=== PATIENT | female | born 1960 | race Caucasian/White ===

== ENCOUNTER 2016-12-31 18:48 | Inpatient (IN) | payer OTHER ==
[~2016-12-31] VITALS: Ht 167.6 cm; Wt 77.7 kg
[~2016-12-31 18:48] MED LIST: ALBU1AER9 INH; LEVO-366 PO; PRED10TA PO
[2016-12-31] MEDS ORDERED: LORAZEPAM 2 MG/ML 1 ML VIAL IV STA (19:06)
[2016-12-31] MEDS ORDERED: ASPIRIN 324 MG CHEW PO STA (19:06)
[2016-12-31] MEDS ORDERED: SODIUM CHLORIDE 0.9% 1000ML 1,000 ML IV STA (19:06)
[2016-12-31] MEDS ORDERED: ONDANSETRON INJ 2 MG/ML 2 ML VIAL IV STA (19:06)
--- NOTE | 2016-12-31 19:09 | EMERGENCY ROOM VISIT NOTE ---
History Report prepared by Red: Austin Flores Under the Supervision of: Dr. Urbano Almazan M.D. First contact with patient: 18:58 Chief Complaint: CHEST PAIN Stated Complaint: CHEST,JAW,UNDERARM PAIN,VOMIT History of Present Illness The patient is a 56 year old female who presents to the Emergency Room with complaints of centralized chest pain that began 2 hours ago. The patient rates her current pain an 8/10 in severity. The patient has felt this way before, but it has never happened for this long before. The patient is experiencing jaw pain , left underarm pain, and shortness of breath. She denies any abdominal pain, urinary symptoms, or recent traveling. She thought this may have been an anxiety attack, so she took 2 Lorazepam pills and Aspirin 84 mg PO. She does not have a history of blood clots. She has a history of COPD and Lupus. Source of History: patient Onset: 2 hours ago Position: chest Symptom Intensity: 8/10 Quality: sharp Timing: constant Associated Symptoms: + SOB, + vomiting, No abdominal pain, No urinary symptoms Note: She is experiencing jaw pain and left underarm pain. Review of Systems See HPI for pertinent positives & negatives. A total of 10 systems reviewed and were otherwise negative. Past Medical & Surgical Medical Problems: (1) Chest pain (2) No Known Active Medical Problems (3) NSTEMI (non-ST elevated myocardial infarction) Family History Patient reports no known family medical history. Social History Smoking Status: Current Every Day Smoker Drug Use: none Marital Status: Housing Status: lives with family Occupation Status: employed Current/Historical Medications Scheduled Fluoxetine (Prozac), 20 MG PO DAILY Hydroxychloroquine Sulfate (Plaquenil), 200 MG PO DAILY Lorazepam (Ativan), 0.5 MG PO HS Allergies Coded Allergies: Penicillins (Unverified Adverse Reaction, Intermediate, UPSET STOMACH, 12/31) Physical Exam Vital Signs Date Time Temp Pulse Resp B/P Pulse Ox O2 Delivery O2 Flow Rate FiO2 12/31/16 21:23 90 24 12/31/16 21:08 88 20 12/31/16 20:53 97 17 12/31/16 20:38 98 18 12/31/16 20:23 91 16 12/31/16 19:55 108/69 12/31/16 19:53 95 15 12/31/16 19:48 101 12/31/16 19:45 94 120/77 96 Room Air 12/31/16 19:43 118/76 12/31/16 19:39 Room Air 12/31/16 19:35 95 120/91 96 Room Air 12/31/16 19:23 95 12/31/16 19:00 134/91 12/31/16 18:55 36.7 111 20 156/90 95 Room Air Physical Exam GENERAL: Patient is anxious appearing and in moderate acute distress. HEENT: No acute trauma, normocephalic atraumatic, mucous membranes moist, no nasal congestion, no scleral icterus. NECK: No stridor, no adenopathy, no meningismus, trachea is midline. LUNGS: No dyspnea. Clear to auscultation and equal bilaterally. No wheeze, no rhonchi. HEART: Tachycardic rate and regular rhythm. No murmurs, rubs, gallops appreciated. ABDOMEN: Soft, nontender, bowel sounds positive, no masses appreciated, no peritonitis. BACK: No midline tenderness, no CVA tenderness EXTREMITIES: Normal motion all extremities, no cyanosis, no edema. NEUROLOGIC: Alert and oriented, no acute motor or sensory deficits, no focal weakness, cranial nerves grossly intact. SKIN: No rash, no jaundice, no diaphoresis. Medical Decision & Procedures ER Provider Diagnostic Interpretation: Radiology results are stated below per my review and radiologist interpretation: CHEST ONE VIEW PORTABLE HISTORY: Atypical Chest Pain COMPARISON: Chest 11/05/2014. FINDINGS: The lungs are clear. Cardiac silhouette is normal in size. No pleural effusions. No pneumothorax. IMPRESSION: No acute process. Electronically signed by: Jhonathan Gonzalez M.D. 12/31/2016 7:57 PM Dictated Date/Time: 12/31/2016 7:55 PM CHEST CTA for PULMONARY ARTERIES CT DOSE: 310.41 mGy.cm HISTORY: Atypical chest pain. TECHNIQUE: Multiaxial CT images of the chest were performed following the intravenous administration of contrast to evaluate the pulmonary arteries. Maximal intensity projection images were also obtained. COMPARISON STUDY: None. FINDINGS: There is a normal caliber thoracic aorta with no evidence for dissection. There is no evidence for pulmonary embolus. No pleural effusions. No pneumothorax. The liver and spleen are unremarkable. No mediastinal or hilar lymphadenopathy. The central airways are patent. Mild noncalcified plaque within the aortic arch and proximal left subclavian artery. Bilateral lower lobe posterior groundglass opacities favor mild dependent change. There is mild to moderate emphysema. A 5 mm subpleural nodule within the right middle lobe on image 141 and a 4 mm subpleural nodule within the right middle lobe on image 134. IMPRESSION: 1. No evidence for pulmonary embolus. 2. There are 2 adjacent subcentimeter indeterminate pulmonary nodules within the right middle lobe with the largest measuring 5 mm. Please refer to the chart below for recommended follow-up. 3. Emphysema. Please refer to below summary of Fleischner criteria recommendations for follow-up of incidental CT nodules (Willard Betancourt, Guidelines for management of small pulmonary nodules detected on CT scans: A statement from the Fleischner Society, Radiology 237: [phone].) Electronically signed by: Jhonathan Gonzalez M.D. 12/31/2016 8:36 PM Dictated Date/Time: 12/31/2016 8:22 PM Laboratory Results 12/31/16 19:15 Red Blood Count 4.14, Mean Corpuscular Volume 93.0, Mean Corpuscular Hemoglobin 33.1, Mean Corpuscular Hemoglobin Concent 35.6, Mean Platelet Volume 8.4, Neutrophils (%) (Auto) 78.4, Lymphocytes (%) (Auto) 15.1, Monocytes (%) (Auto) 4.8, Eosinophils (%) (Auto) 1.1, Basophils (%) (Auto) 0.3, Neutrophils # (Auto) 8.17, Lymphocytes # (Auto) 1.57, Monocytes # (Auto) 0.50, Eosinophils # (Auto) 0.11, Basophils # (Auto) 0.03 12/31/16 19:15 Test 12/31/16 19:15 White Blood Count 10.41 K/uL (4.8-10.8) Red Blood Count 4.14 M/uL (4.2-5.4) Hemoglobin 13.7 g/dL (12.0-16.0) Hematocrit 38.5 % (37-47) Mean Corpuscular Volume 93.0 fL (80-100) Mean Corpuscular Hemoglobin 33.1 pg (25-34) Mean Corpuscular Hemoglobin Concent 35.6 g/dl (32-36) Platelet Count 181 K/uL (130-400) Mean Platelet Volume 8.4 fL (7.4-10.4) Neutrophils (%) (Auto) 78.4 % Lymphocytes (%) (Auto) 15.1 % Monocytes (%) (Auto) 4.8 % Eosinophils (%) (Auto) 1.1 % Basophils (%) (Auto) 0.3 % Neutrophils # (Auto) 8.17 K/uL (1.4-6.5) Lymphocytes # (Auto) 1.57 K/uL (1.2-3.4) Monocytes # (Auto) 0.50 K/uL (0.11-0.59) Eosinophils # (Auto) 0.11 K/uL (0-0.5) Basophils # (Auto) 0.03 K/uL (0-0.2) RDW Standard Deviation 43.9 fL (36.4-46.3) RDW Coefficient of Variation 12.9 % (11.5-14.5) Immature Granulocyte % (Auto) 0.3 % Immature Granulocyte # (Auto) 0.03 K/uL (0.00-0.02) D-Dimer 660 ug/L FEU (0-500) Anion Gap 10.0 mmol/L (3-11) Est Creatinine Clear Calc Drug Dose 86.3 ml/min Estimated GFR () 100.9 Estimated GFR (Non- 87.1 BUN/Creatinine Ratio 23.7 (10-20) Calcium Level 8.7 mg/dl (8.5-10.1) Total Creatine Kinase 74 U/L (26-192) Creatine Kinase MB 4.5 ng/ml (0.5-3.6) Creatine Kinase MB Ratio 6.1 (0-3.0) Troponin I 0.285 ng/ml (0-0.045) Laboratory results as reviewed by me. Medications Administered Medications (Trade) Dose Ordered Sig/Forrest Route Start Time Stop Time Status Last Admin Dose Admin Lorazepam (Ativan Inj) 1 mg NOW STAT IV 12/31/16 19:06 12/31/16 19:08 DC 12/31/16 19:32 1 MG Aspirin (Aspirin Chew) 324 mg NOW STAT PO 12/31/16 19:06 12/31/16 19:08 DC 12/31/16 19:30 324 MG Ondansetron HCl 4 mg 4 mg NOW STAT IV 12/31/16 19:06 12/31/16 19:08 DC 12/31/16 19:30 4 MG Sodium Chloride (Nss 1000ml) 1,000 ml @ 999 mls/hr Q1H1M STAT IV 12/31/16 19:06 12/31/16 20:06 DC 12/31/16 19:06 999 MLS/HR Nitroglycerin (Nitrostat Tab) 0.4 mg Q5M PRN SL 12/31/16 19:15 12/31/16 22:35 DC 12/31/16 19:44 0.4 MG Heparin Sodium/ Dextrose 1 ea NOW STAT N/A 12/31/16 20:36 12/31/16 20:37 DC 12/31/16 20:36 1 EA Heparin Sodium/ Dextrose (Heparin 25,000 Unit/500ml D5W) 25,000 unit STK-MED ONCE .ROUTE 12/31/16 20:50 12/31/16 20:51 DC 12/31/16 20:49 25,000 UNIT Heparin Sodium (Porcine) (Heparin Sq 5000 Unit/0.5ml) 5,000 unit STK-MED ONCE .ROUTE 12/31/16 20:50 12/31/16 20:51 DC 12/31/16 20:48 5,000 UNIT Metoprolol Tartrate (Lopressor Tab) 25 mg NOW STAT PO 12/31/16 21:26 12/31/16 21:27 DC 12/31/16 21:40 25 MG ECG Indication: chest pain Rate (beats per minute): 100 Rhythm: normal sinus Findings: RBBB, no acute ischemic change, no ectopy ED Course 1857: The patient was evaluated in room A3. A complete history and physical exam was performed. 1905: Ordered Sodium Chloride 1000 ml @ 999 mls/hr IV, Zofran Inj 4 mg IV, Aspirin 324 mg PO, Ativan Inj 1 mg 1914: Ordered Nitroglycerin 0.4 mg SL 2035: The patient feels better and is having no further chest pain. 2049: Heparin Sodium 5,000 unit .ROUTE, Heparin Sodium/ Dextrose 25,000 unit .ROUTE 2123: I spoke with Dr. Camacho of Cardiology at this time. They recommended ordering Metoprolol and agreed with my decision of the Heparin. 2125: Metoprolol 25 mg PO 2127: Upon reevaluation, the patient is resting. Discussed results and treatment plan with the patient. She verbalized understanding and agreement with the treatment plan. The patient will be evaluated by Dr. Ron Huber Hospitalist, for further management. Medical Decision Differential: Cardiac Ischemia (STEMI, NSTEMI, Unstable Angina, etc), Aortic Dissection, Arrhythmia, Pulmonary Embolism, Pneumonia, Pneumothorax, MSK, Infectious, Pericarditis/Myocarditis, Esophageal Rupture, Gastrointestinal, amongst other pathologies entertained. 56 yr old female smoker with sister who has known CAD arrives with substernal chest pain radiating to right jaw. Resolved with 2nd SLNTG. Mild dimer elevation thus sent for CT with no acute PE noted (multiple nodules noted). No dissection/rupture appreciated. Trop returns elevated consistent with NSTEMI. EKG looks OK without stemi currently. She was evaluated multiple times and doing well. I discussed pros/cons of Heparin. She does not have any current nor recent contraindications to heparin use. Denies headache, head injuries, recent trauma, rectal bleeding, black/bloody stools, abdominal pain, easy bruising/bleeding, etc. Patient agrees to starting heparin. Discussed case with hospitalist who will bring her in for further revaluation. I did discuss case with [place] Judge who asked that I start her on Metoprolol 25mg PO BID. Consults Time Called: [phone] Consulting Physician: Dr. Camacho - Cardiology Returned Call: [phone] We discussed the patient's case. They recommended Metoprolol and agreed with Heparin. Additional Consults: Time Called: 2123 Consulted Physician: Dr. Ron Huber Hospitalist Returned Call: [phone] Additional Comments: They will be evaluating the patient for further management. Impression Primary Impression: NSTEMI (non-ST elevated myocardial infarction) Critical Care I have personally spent greater than 35 minutes of critical care time in the direct management of this patient. This was a life/limb threatening event. This includes time spent evaluating patient, direct bedside care, chart review, placing orders, interpretation of diagnostic studies, discussion with consultants, patient, and family members, as well as other required patient management activities. This 35 minutes is in excess of all separately billable procedures. Scribe Attestation The scribe's documentation has been prepared under my direction and personally reviewed by me in its entirety. I confirm that the note above accurately reflects all work, treatment, procedures, and medical decision making performed by me. Departure Information Dispostion Being Evaluated By Hospitalist Referrals Yusuf Kumari M.D. (PCP) Patient Instructions My [facility]
[2016-12-31] MEDS ORDERED: HYDR200T5 PO (19:30)
[2016-12-31] MEDS ORDERED: FLUO20CA35 PO (19:30)
[2016-12-31] MEDS ORDERED: LORA-741 PO (19:30)
[2016-12-31 19:32] LABS: BASO % 0.3 %; BASO ABS # 0.03 K/uL (0-0.2); COMPLETE YES; EOS % 1.1 %; HEMATOCRIT 38.5 % (37-47); IG% 0.3 %; LYMPH % 15.1 %; LYMPH ABS # 1.57 K/uL (1.2-3.4); MEAN CORPUSCULAR HEMOGLOBIN 33.1 pg (25-34); MEAN CORPUSCULAR HGB CONC 35.6 g/dl (32-36); MEAN PLATELET VOLUME 8.4 fL (7.4-10.4); MONO % 4.8 %; NEUT % 78.4 %; PLATELET COUNT 181 K/uL (130-400); RED BLOOD COUNT 4.14 M/uL (4.2-5.4); WHITE BLOOD COUNT 10.41 K/uL (4.8-10.8)
[2016-12-31] MEDS: NITROGLYCERIN 0.4 MG SL PER TAB CHARGE SL PRN ×2 (19:36→19:44)
[2016-12-31 19:48] LABS: BUN/CREATININE RATIO 23.7 (10-20); CALCIUM 8.7 mg/dl (8.5-10.1); CREATININE 0.76 mg/dl (0.60-1.20); POTASSIUM 3.4 mmol/L (3.5-5.1)
--- NOTE | 2016-12-31 19:58 | DIAGNOSTIC IMAGING REPORT ---
CHEST ONE VIEW PORTABLE HISTORY: Atypical Chest Pain COMPARISON: Chest 11/05/2014. FINDINGS: The lungs are clear. Cardiac silhouette is normal in size. No pleural effusions. No pneumothorax. IMPRESSION: No acute process. Electronically signed by: Jhonathan Gonzalez M.D. 12/31/2016 7:57 PM Dictated Date/Time: 12/31/2016 7:55 PM
[2016-12-31] MEDS ORDERED: OPTIRAY 320 IV PRN (20:00)
[2016-12-31 20:25] LABS: CKMB/CK RATIO 6.1 (0-3.0)
--- NOTE | 2016-12-31 20:38 | DIAGNOSTIC IMAGING REPORT ---
CHEST CTA for PULMONARY ARTERIES CT DOSE: 310.41 mGy.cm HISTORY: Atypical chest pain. TECHNIQUE: Multiaxial CT images of the chest were performed following the intravenous administration of contrast to evaluate the pulmonary arteries. Maximal intensity projection images were also obtained. COMPARISON STUDY: None. FINDINGS: There is a normal caliber thoracic aorta with no evidence for dissection. There is no evidence for pulmonary embolus. No pleural effusions. No pneumothorax. The liver and spleen are unremarkable. No mediastinal or hilar lymphadenopathy. The central airways are patent. Mild noncalcified plaque within the aortic arch and proximal left subclavian artery. Bilateral lower lobe posterior groundglass opacities favor mild dependent change. There is mild to moderate emphysema. A 5 mm subpleural nodule within the right middle lobe on image 141 and a 4 mm subpleural nodule within the right middle lobe on image 134. IMPRESSION: 1. No evidence for pulmonary embolus. 2. There are 2 adjacent subcentimeter indeterminate pulmonary nodules within the right middle lobe with the largest measuring 5 mm. Please refer to the chart below for recommended follow-up. 3. Emphysema. Please refer to below summary of Fleischner criteria recommendations for follow-up of incidental CT nodules (Willard Betancourt, Guidelines for management of small pulmonary nodules detected on CT scans: A statement from the Fleischner Society, Radiology 237: [phone].) SOLID NODULES Solitary nodule size: <6 mm * low risk patients: no follow-up needed * high risk patients: optional CT at 12 months Solitary nodule size: 6-8 mm * low risk patients: follow-up at 6-12 months, then consider further follow-up at 18-24 months * high risk patients: initial follow-up CT at 6-12 months and then at 18-24 months if no change Solitary nodule size: >8 mm * either low or high risk patients - consider follow-up CT at 3 months, and/or CT-PET, and/or biopsy Multiple nodules size: <6 mm * low risk patients: no routine follow-up * high risk patients: optional CT at 12 months Multiple nodules size: 6-8 mm * low risk patients: follow-up at 3-6 months, then consider further follow-up at 18-24 months * high risk patients: follow-up at 3-6 months, then at 18-24 months if no change Multiple nodules size: >8 mm * low risk patients: follow-up at 3-6 months, then consider further follow-up at 18-24 months * high risk patients: follow-up at 3-6 months, then at 18-24 months if no change Note: newly detected indeterminate nodule in persons 35 years of age or older. * low risk patients: minimal or absent history of smoking and/or other known risk factors * high risk patients: history of smoking or of other known risk factors (e.g. first degree relative with lung cancer, or exposure to asbestos, radon, uranium) * if a nodule up to 8 mm is partly solid or is ground glass further follow-up is required after 24 months to exclude possible slow growing adenocarcinoma ([place]) SUBSOLID NODULES Solitary pure ground-glass nodule * nodule size <6 mm - no CT follow-up required * nodule size >=6 mm - follow-up CT at 6-12 months, then every 2 years until 5 years Solitary part-solid nodule * nodule size <6 mm - no CT follow-up required * nodule size >=6 mm - follow-up CT at 3-6 months. If unchanged, and solid component remains <6 mm, then annual follow-up for 5 years Multiple subsolid nodules * nodule size <6 mm - follow-up CT at 3-6 months, consider further follow-up at 2 and 4 years if stable * nodule size >=6 mm - follow-up CT at 3-6 months, subsequent management based on the most suspicious nodule(s) Electronically signed by: Jhonathan Gonzalez M.D. 12/31/2016 8:36 PM Dictated Date/Time: 12/31/2016 8:22 PM
[2016-12-31] MEDS ORDERED: HEPARIN 25000 UNIT/500 ML D5W ONE (20:50)
[2016-12-31] MEDS ORDERED: HEPARIN SOD 5000 UNIT/0.5 ML CARP ONE (20:50)
[2016-12-31] MEDS ORDERED: METOPROLOL TARTRATE 25 MG TAB PO STA (21:26)
[2016-12-31] MEDS ORDERED: NITROGLYCERIN 0.4 MG SL PER TAB CHARGE SL PRN (22:00)
[2016-12-31] MEDS ORDERED: POTASSIUM CHLORIDE 10 MEQ TABCR PO STA (22:02)
--- NOTE | 2016-12-31 22:10 | History and Physical ---
History & Physical Date & Time of Service: Dec 31, 2016 at 22:03 Chief Complaint: Chest,Jaw,Underarm Pain,Vomit Primary Care Physician: Yusuf Kumari M.D. History of Present Illness Source: patient The patient is a 56 year old female with past medical hx of chronic tobacco abuse , SLE presented to ED with complain of severe substernal chest discomfort with pain radiation to jaw , left underarm associated with SOB , diaphoresis and nausea pt does not having any hx of Coronary artery disease , family hx significant for Father having DE , pt could not tell how old he was when he had the DE later developed post DE complication -CHF pt mentions that her symptom started approx around 5 pm after she finished giving bath to her Dog felt severe substernal crushing chest pain with pain radiating to her jaw , neck , right ear , had numbness on left underarm felt diaphoretic , nauseous, associated with SOB . She thought this may have been an anxiety attack, so she took 2 Lorazepam pills and Aspirin 84 mg PO. Her symptom resolved after SL nitro during my interview -pt was completely symptom free, no chest discomfort, no SOB ,no nausea concerned about her symptom cardiac markers at 19: 15 CK 74/CKMB 4.5/lila 0.285 EKG was normal sinus no acute ST-T wave changes Family History Patient reports no known family medical history. Social History Smoking Status: Current Every Day Smoker Drug Use: none Marital Status: Housing status: lives with family Occupational Status: employed Multi-Drug Resistant Organisms History of MDRO: No Allergies Coded Allergies: Penicillins (Unverified Adverse Reaction, Intermediate, UPSET STOMACH, 12/31) Home Medications Scheduled Fluoxetine (Prozac), 20 MG PO DAILY Hydroxychloroquine Sulfate (Plaquenil), 200 MG PO DAILY Lorazepam (Ativan), 0.5 MG PO HS Review of Systems Constitutional: + fatigue, + weakness Respiratory: + dyspnea on exertion, + shortness of breath Cardiovascular: + chest pain, + problem reported (substernal heaviness , with pain radiation to jaw and arm ) Abdomen: + nausea Musculoskeletal: No calf pain, No joint pain, No muscle pain, No problem reported, No swelling Genitourinary - Female: No dysmenorrhea, No dysuria, No hematuria, No menorrhagia, No metrorrhagia, No , No problem reported, No rash, No urinary frequency, No urinary incontinence, No urinary retention, No urinary urgency, No vaginal bleeding, No vaginal discharge, No vaginal itching, No vulvodynia Neurologic: + weakness Psychiatric: + anxiety Physical Exam Vital Signs Date Time Temp Pulse Resp B/P Pulse Ox O2 Delivery O2 Flow Rate FiO2 12/31/16 19:48 101 12/31/16 19:45 94 120/77 96 Room Air 12/31/16 19:43 118/76 12/31/16 19:39 Room Air 12/31/16 19:35 95 120/91 96 Room Air 12/31/16 19:23 95 12/31/16 19:00 134/91 12/31/16 18:55 36.7 111 20 156/90 95 Room Air General Appearance: no apparent distress Head: normocephalic, atraumatic Eyes: normal inspection, sclerae normal Neck: no adenopathy, no carotid bruits, trachea midline Respiratory/Chest: chest non-tender, lungs clear, normal breath sounds, no respiratory distress Cardiovascular: regular rate, rhythm, no murmur Abdomen/GI: normal bowel sounds, non tender, soft Extremities/Musculoskelatal: normal capillary refill, no pedal edema Neurologic/Psych: alert, normal mood/affect, oriented x 3 Skin: normal color, warm/dry, no rash Diagnostics Laboratory Results Results Past 24 Hours Test 12/31/16 19:15 Range/Units White Blood Count 10.41 4.8-10.8 K/uL Red Blood Count 4.14 4.2-5.4 M/uL Hemoglobin 13.7 12.0-16.0 g/dL Hematocrit 38.5 37-47 % Mean Corpuscular Volume 93.0 80-100 fL Mean Corpuscular Hemoglobin 33.1 25-34 pg Mean Corpuscular Hemoglobin Concent 35.6 32-36 g/dl Platelet Count 181 130-400 K/uL Mean Platelet Volume 8.4 7.4-10.4 fL Neutrophils (%) (Auto) 78.4 % Lymphocytes (%) (Auto) 15.1 % Monocytes (%) (Auto) 4.8 % Eosinophils (%) (Auto) 1.1 % Basophils (%) (Auto) 0.3 % Neutrophils # (Auto) 8.17 1.4-6.5 K/uL Lymphocytes # (Auto) 1.57 1.2-3.4 K/uL Monocytes # (Auto) 0.50 0.11-0.59 K/uL Eosinophils # (Auto) 0.11 0-0.5 K/uL Basophils # (Auto) 0.03 0-0.2 K/uL RDW Standard Deviation 43.9 36.4-46.3 fL RDW Coefficient of Variation 12.9 11.5-14.5 % Immature Granulocyte % (Auto) 0.3 % Immature Granulocyte # (Auto) 0.03 0.00-0.02 K/uL D-Dimer 660 0-500 ug/L FEU Sodium Level 135 136-145 mmol/L Potassium Level 3.4 3.5-5.1 mmol/L Chloride Level 100 98-107 mmol/L Carbon Dioxide Level 25 21-32 mmol/L Anion Gap 10.0 3-11 mmol/L Blood Urea Nitrogen 18 7-18 mg/dl Creatinine 0.76 0.60-1.20 mg/dl Est Creatinine Clear Calc Drug Dose 86.3 ml/min Estimated GFR () 100.9 Estimated GFR (Non- 87.1 BUN/Creatinine Ratio 23.7 10-20 Random Glucose 89 70-99 mg/dl Calcium Level 8.7 8.5-10.1 mg/dl Total Creatine Kinase 74 26-192 U/L Creatine Kinase MB 4.5 0.5-3.6 ng/ml Creatine Kinase MB Ratio 6.1 0-3.0 Troponin I 0.285 0-0.045 ng/ml Diagnostic Radiology CHEST CTA for PULMONARY ARTERIES CT DOSE: 310.41 mGy.cm HISTORY: Atypical chest pain. TECHNIQUE: Multiaxial CT images of the chest were performed following the intravenous administration of contrast to evaluate the pulmonary arteries. Maximal intensity projection images were also obtained. COMPARISON STUDY: None. FINDINGS: There is a normal caliber thoracic aorta with no evidence for dissection. There is no evidence for pulmonary embolus. No pleural effusions. No pneumothorax. The liver and spleen are unremarkable. No mediastinal or hilar lymphadenopathy. The central airways are patent. Mild noncalcified plaque within the aortic arch and proximal left subclavian artery. Bilateral lower lobe posterior groundglass opacities favor mild dependent change. There is mild to moderate emphysema. A 5 mm subpleural nodule within the right middle lobe on image 141 and a 4 mm subpleural nodule within the right middle lobe on image 134. IMPRESSION: 1. No evidence for pulmonary embolus. 2. There are 2 adjacent subcentimeter indeterminate pulmonary nodules within the right middle lobe with the largest measuring 5 mm. Please refer to the chart below for recommended follow-up. 3. Emphysema. Please refer to below summary of Fleischner criteria recommendations for follow-up of incidental CT nodules (Willard Betancourt, Guidelines for management of small pulmonary nodules detected on CT scans: A statement from the Fleischner Society, Radiology 237: [phone].) SOLID NODULES Solitary nodule size: <6 mm * low risk patients: no follow-up needed * high risk patients: optional CT at 12 months CHEST ONE VIEW PORTABLE HISTORY: Atypical Chest Pain COMPARISON: Chest 11/05/2014. FINDINGS: The lungs are clear. Cardiac silhouette is normal in size. No pleural effusions. No pneumothorax. IMPRESSION: No acute process. CXR normal Impression Assessment and Plan CHEST PAIN /UNSTABLE ANGINA EQUIVALENT presented with typical anginal symptom resolved with SL nitro no prior hx of CAD CT chest with contrast -negatived for PE NSTEMI presented with crushing substernal chest pain with radiation of Jaw , left arm symptom resolved with SL nitro troponin elevated serial markers ordered monitor in tele IV heparin wt based protocol ECHO ordered to assess wall motion abnormality ,LV function Cardiology consult requested NPO past midnight except for meds -if pt requires cardiac intervention HX OF COPD respiratory status stable no evidence of exacerbation TOBACCO ABUSE DISORDER : Smoked 1 pack/day for 37 years; Smoked: Never used smokeless tobacco. started smoking at age 14-down to 1 ppd from 2ppd since 02/2010 nicotine patch ordered as Per recent office visit note with Dr Kumari : pt has tried to quit, had nightmares on Chantix. smoking cessation counselling provided DEPRESSION Cont with Prozac HYPONATREMIA : due to dehydration gentle hydration with IV NSS follow PRP HYPOKALEMIA: replaced orally follow labs in AM PULMONARY NODULE : incidental finding in CT chest hx of 38 pk/yr smoking hx -high risk repeat CT chest in 12 months HX OF LUPUS : follows with Rheumatology Dr Cathy Fitzpatrick Plaquenil in setting of acute coronary event can be resumed when clinically improved HX OF CHRONIC BACK PAIN /ARTHRITIS : pt was recently started on PO Prednisone taper for left sided sciatica , low back pain by her PCP Pt complains of gait disturbance due to chronic pain frequent falls at home PT/OT catrachitaal requested FULL CODE DVT PROPHYLAXIS : IV heparin wt based protocol DISPOSITION : expected to return home when medically stable Medicine follow up with Dr Kumari Level of Care Telemetry Resuscitation Status FULL RESUSCITATION VTE Prophylaxis VTE Risk Assessment Done? Y/N: Yes Risk Level: Moderate Note In my clinical judgment this beneficiary meets acute admission criteria, established by [facility], that includes being hospitalized through two midnights. Additional Copies To Yusuf Kumari M.D.
[2016-12-31] MEDS ORDERED: ALBUTEROL HFA 8 GM INHALER INH PRN (22:30)
[2016-12-31] MEDS ORDERED: ALBUT/IPRATROP 3MG/0.5MG NEB 3 ML VIAL INH PRN (22:30)
[2016-12-31 22:45] VITALS: BP 121/87; PULSE 87; TEMP 36.6; O2SAT 96; Ht 167.6 cm; Wt 77.7 kg
[2016-12-31] MEDS ORDERED: NSS + 20MEQ KCL 1000ML 1,000 ML IV SCH (22:45)
[2016-12-31] MEDS ORDERED: HEPARIN 25,000 UNIT/500ML D5W 500 ML IV PRN (23:00)
[2016-12-31] MEDS: NICOTINE 21 MG/24 HR TDSY TD SCH (23:30)
[2017-01-01] VITALS (18 sets, daily range): BP systolic 99–127; BP diastolic 62–85; PULSE 68–96; TEMP 36.4–36.9; O2SAT 93–99
[2017-01-01 04:08] LABS: MEAN CELL VOLUME 94.5 fL (80-100); MEAN CORPUSCULAR HEMOGLOBIN 32.8 pg (25-34); MEAN CORPUSCULAR HGB CONC 34.7 g/dl (32-36); MEAN PLATELET VOLUME 8.5 fL (7.4-10.4); PLATELET COUNT 173 K/uL (130-400); RED BLOOD COUNT 4.02 M/uL (4.2-5.4); WHITE BLOOD COUNT 9.61 K/uL (4.8-10.8)
[2017-01-01 04:21] LABS: PARTIAL THROMBOPLASTIN RATIO 1.1
[2017-01-01 04:34] LABS: BUN/CREATININE RATIO 17.3 (10-20); CALCIUM 8.6 mg/dl (8.5-10.1); CREATININE 0.69 mg/dl (0.60-1.20); MAGNESIUM 2.3 mg/dl (1.8-2.4); POTASSIUM 4.9 mmol/L (3.5-5.1)
[2017-01-01 04:49] LABS: CHOLESTEROL/HDL RATIO 4.5; CKMB/CK RATIO 13.1 (0-3.0)
--- NOTE | 2017-01-01 05:26 | Progress Note ---
Progress Note Date of Service Jan 01, 2017. Progress Note ATTENDING NOTE : NSTEMI repeat troponin elevation noted Rishi 0.285->9.7 CK 611 CKMB 80 pt denies of any recurrent of chest pain or SOB IV heparin wt based protocol Cardiology consulted pt is kept NPO except for meds for possible Cardiac intervention /cardiac cath
[2017-01-01] MEDS ORDERED: NITROGLYCERIN OINT 2% 1GM PACKET EXT STA (05:31)
[2017-01-01] MEDS ORDERED: NITROGLYCERIN OINT 2% 1GM PACKET ONE (05:40)
[2017-01-01] MEDS: ONDANSETRON INJ 2 MG/ML 2 ML VIAL IV PRN (05:42)
--- NOTE | 2017-01-01 05:42 | Progress Note ---
Progress Note Date of Service Jan 01, 2017. Progress Note ATTENDING NOTE : pt developed substernal crushing chest pain with radiation to rt jaw and left arm nauseous , diaphoretic complains of SOB stat EKG obtained 5: 35 am NSR with flattening of T wave in V2 ordered for Nitro paste on IV heparin on cardiology paged case D/w Dr Camacho -ordered to give IV Lopressor 5 mg X1 stat cont IV heparin gtt nitro paste pt will have cardiac cath today am aspirin 81 mg AM dose now /loading dose of Plavix 300 mg X1 given chest pain improved after Nitro past IV morphine repeat EKG at 6: 30 am
[2017-01-01] MEDS ORDERED: LORAZEPAM 2 MG/ML 1 ML VIAL IV PRN (05:45)
[2017-01-01] MEDS ORDERED: MoRPHine SULFATE 2 MG/ML CARP IV PRN (05:45)
[2017-01-01] MEDS ORDERED: METOPROLOL TARTRATE 1 MG/ML VIAL IV STA (05:48)
[2017-01-01] MEDS ORDERED: HEPARIN SOD 5000 UNIT/0.5 ML CARP SQ SCH (06:00)
[2017-01-01] MEDS: ASPIRIN 81 MG ECTAB PO SCH (06:03)
[2017-01-01] MEDS ORDERED: CLOPIDOGREL BISULFATE 300 MG TAB PO SCH (06:15)
[2017-01-01 06:22] LABS: URINE APPEARANCE CLEAR (CLEAR); URINE BILIRUBIN NEG (NEG); URINE COLOR YELLOW; URINE NITRITE NEG (NEG); URINE PH 5.5 (4.5-7.5); URINE SPECIFIC GRAVITY 1.016 (1.000-1.030); UROBILINOGEN NEG (NEG); ZZUR CULT IF INDIC CLEAN CATCH NO
[2017-01-01 06:28] LABS: MANUAL MICROSCOPIC REQUIRED? NO; REVIEW REQ? NO
[2017-01-01] MEDS: ATORVASTATIN 40 MG TAB PO SCH (06:30)
[2017-01-01 07:10] LABS: HEMATOCRIT 39.6 % (37-47); MEAN CELL VOLUME 94.7 fL (80-100); MEAN CORPUSCULAR HEMOGLOBIN 32.1 pg (25-34); MEAN CORPUSCULAR HGB CONC 33.8 g/dl (32-36); PLATELET COUNT 212 K/uL (130-400); RED BLOOD COUNT 4.18 M/uL (4.2-5.4); WHITE BLOOD COUNT 10.93 K/uL (4.8-10.8)
[2017-01-01] MEDS ORDERED: SODIUM CHLORIDE 0.9% 1000ML 1,000 ML IV ONE (07:30)
[2017-01-01 07:41] LABS: CALCIUM 8.6 mg/dl (8.5-10.1); CREATININE 0.69 mg/dl (0.60-1.20); POTASSIUM 4.5 mmol/L (3.5-5.1)
[2017-01-01] MEDS ORDERED: DIAZEPAM 5MG TAB PO ONE (07:45)
[2017-01-01 07:51] LABS: CKMB/CK RATIO 12.9 (0-3.0)
--- NOTE | 2017-01-01 07:58 | DIAGNOSTIC IMAGING REPORT ---
SINGLE VIEW CHEST CLINICAL HISTORY: Dyspnea. Myocardial infarction. FINDINGS: An AP, portable, upright chest radiograph is compared to chest x-ray and chest CT dated 12/31/2016. The examination is degraded by portable technique and patient rotation. The cardiomediastinal silhouette is unremarkable. The pulmonary vasculature is noncongested. Emphysema and chronic interstitial thickening are similar to previous. There is bibasilar atelectasis. No airspace consolidation or large pleural effusion is identified. No pneumothorax is seen. The skeletal structures are osteopenic. The bony thorax is grossly intact. IMPRESSION: Emphysema with no acute cardiopulmonary abnormality. Electronically signed by: Moose Brown M.D. 01/01/2017 7:56 AM Dictated Date/Time: 01/01/2017 7:55 AM
[2017-01-01] MEDS ORDERED: ASPIRIN 81 MG CHEW ONE (08:19)
[2017-01-01] MEDS ORDERED: MIDAZOLAM HCL 1 MG/ML 2ML VIAL ONE (08:57)
[2017-01-01] MEDS: FLUOXETINE HCL 20 MG CAP PO SCH (09:00)
[2017-01-01] MEDS ORDERED: SODIUM CHLORIDE 0.9% 1000ML 250 ML IV PRN (09:17)
[2017-01-01] MEDS ORDERED: SODIUM CHLORIDE 0.9% 1000ML 1,000 ML IV SCH (09:17)
--- NOTE | 2017-01-01 09:24 | [facility] Post Operative Brief Note ---
Preliminary Procedure Note Procedure Date Jan 01, 2017. Pre-Procedure Diagnosis Cardiothoracic Symptom AUC Score 9 Post-Procedure Diagnosis Normal Coronary Arteries Procedure(s) Performed Coronary Angiography, Left Heart Cath, LV Angiography Guide Dog Trainer Dr. Sherwin Camacho Insurance [employer] Financial Services Agent(s) Mildred Malik Estimated Blood Loss <15cc Medication(s) Lidocaine 1% (local infiltraion) Preliminary Findings Right dominant coronary anatomy Normal coronaries Normal LV function EF 65% LVEDP 14 Recommendations Medical therapy and/or Counseling Specimens None Fluids (cc crystalloids) 104 Anesthesia Verseed 1mg IV Procedural Complication(s) None Disposition PCU
[2017-01-01] MEDS ORDERED: ATROPINE SULFATE 0.1 MG/ML 5ML SYR IV PRN (09:30)
[2017-01-01] MEDS ORDERED: ACETAMINOPHEN 325 MG TAB PO PRN (09:30)
--- NOTE | 2017-01-01 09:54 | CARDIOLOGY CONSULTATION ---
DATE OF CONSULTATION: 01/01/2017 REFERRING: Lindsay Velasquez MD PRIMARY CARE PHYSICIAN: Yusuf Kumari MD INDICATIONS: Chest pain, non-ST segment elevation myocardial infarction. HISTORY OF PRESENT ILLNESS: The patient is a 56-year-old female whose past medical history is notable for chronic obstructive lung disease, SLE, mild demyelinating disease per patient. She presents now noting yesterday after rigorous activity while bathing her dog, developing severe substernal chest pain, radiating to her jaw, neck and ear with numbness to the left arm, diaphoresis and nausea. She took an aspirin and 2 lorazepam and presented to the Emergency Room with pain relieved with 1 sublingual nitroglycerin. Initial cardiac enzymes are mildly elevated. This morning, the patient had an additional episode of chest discomfort with elevated troponin. She is referred now for further evaluation. She denies any prior history of cardiac disease, rheumatic fever, scarlet fever, renal or hepatic disease. Notes no history of TIA or stroke, prior history of chest pain. Denies renal or hepatic disease. Notes no melena, hematochezia, dysuria or hematuria. Notes no bleeding difficulties. Notes no recent fevers, chills or infections. Notes no rash. Has chronic arthritic complaints, chronic mild breathlessness. Notes cholesterols have been elevated in the past, but uncertain as to what degree. She does continue to smoke approximately 1 pack of cigarettes per day. ALLERGIES: None. MEDICATIONS PRIOR TO HOSPITALIZATION: Prozac 20 mg p.o. daily, Plaquenil 200 mg p.o. daily, and lorazepam p.r.n. PAST SURGICAL HISTORY: Notable for partial hysterectomy. FAMILY HISTORY: Notable for coronary artery disease and heart failure in the father with patient's father developing disease in his 50s. She has a history of peripheral vascular disease in her 50s. SOCIAL HISTORY: The patient resides in [place]. She is a 1-pack per day smoker, uses no significant alcoholic beverages. MEDICATIONS: Uses ibuprofen as [id number] medication on a near daily basis. PHYSICAL EXAMINATION: VITAL SIGNS: Heart rate 75, blood pressure is 107/74. HEENT: Normocephalic, atraumatic. Nares without discharge. Throat was clear. NECK: Supple without thyromegaly or lymphadenopathy. There are no carotid bruits. LUNGS: Reveal diminished breath sounds diffusely. CARDIOVASCULAR: Regular, normal S1, S2. No murmur, gallop or rub. PMI is nondisplaced. ABDOMEN: Soft, nontender, no audible abdominal bruits. EXTREMITIES: Without cyanosis or clubbing. There are intact distal pulses 2/4. Dorsalis pedis and posterior tibialis. Right ulnar pulses not palpable. IMAGING DATA: EKG on presentation revealed sinus rhythm with right bundle branch block, rate 100. EKG this morning after episode of chest discomfort demonstrates sinus rhythm with normal tracing. Chest x-ray reveals no infiltrate or edema. CT scan of the chest to exclude pulmonary embolus was performed last night without evidence of pulmonary emboli with emphysematous changes. LABORATORY STUDIES: Sodium is 145, potassium is 4.9, chloride is 111, bicarbonate 29, BUN is 12, creatinine 0.69. Initial troponin was 0.28 , is increased to 9.7 this morning. CK went from 74-611 with at significant MB fractions. IMPRESSION: A 56-year-old female presents with symptoms strongly suggestive of acute coronary syndrome with repeated episodes of chest discomfort this morning. She is anticoagulated with heparin. She has received a single dose of metoprolol, topical nitrates, and referral for cardiac catheterization this morning. Procedure and risks explained in detail to the patient including risks of , myocardial infarction, stroke, bleeding, infection, dye reaction, renal vascular embolic injury. Additional risks of coronary intervention if indicated were also discussed including increased risk of myocardial infarction and need for urgent bypass surgery. Plan on proceeding first case.
--- NOTE | 2017-01-01 10:11 | ECHOCARDIOGRAM REPORT ---
*NOTICE TO RECEIVING [employer] This information is strictly Confidential and protected under [place] law. [place] law prohibits you from making any further disclosure of this information unless further disclosure is expressly permitted by the written consent of the person to whom it pertains or is authorized by law. A general authorization for the release of medical or other information is not sufficient for this purpose. Hospital accepts no responsibility if the information is made available to any other person, INCLUDING THE PATIENT. Interpretation Summary * Name: FRANCISCA HAMPTON Study Date: 01/01/2017 07:39 AM BP: 109/75 mmHg * Patient Location: C.2T\S\S237\S\1 HR: 80 * : 1960 (M/d/yyyy) Gender: Female Height: 66 in * Age: 56 yrs Ethnicity: CA Weight: 172 lb * Ordering Physician: Lindsay Velasquez * Performed By: Zita Billy RDCS * * Reason For Study: Chest pain * BSA: 1.9 m2 * -- Conclusions -- * Normal LV chamber size and wall thickness. * Normal LV systolic function, EF 55-60%. * No segmental left ventricular wall motion abnormalities are noted. * Grade I diastolic dysfunction. * No significant valvular pathology. Procedure Details * A complete two-dimensional transthoracic echocardiogram was performed (2D, M-mode, Doppler and color flow Doppler). Left Ventricle * The left ventricle is normal in size. * There is normal left ventricular wall thickness. * Left ventricular systolic function is normal. * No segmental left ventricular wall motion abnormalities are noted. * Ejection Fraction = 55-60%. * The left ventricular wall motion is normal. Right Ventricle * The right ventricular cavity size is normal (basal dimension <4.2 cm in right ventricular apical 4-chamber view). * The right ventricular systolic function is normal as assessed by tricuspid annular plane systolic excursion (TAPSE) (normal >1.5 cm). Atria * The left atrial size is normal. * Right atrial size is normal. * No ASD detected; PFO is not assessed. Mitral Valve * The mitral valve is normal in structure and function. Tricuspid Valve * The tricuspid valve is normal in structure and function. Aortic Valve * The aortic valve is not well visualized. * No hemodynamically significant valvular aortic stenosis. * There is no significant aortic regurgitation. Pulmonic Valve * The pulmonary valve is not well seen, but the Doppler examination is normal without significant regurgitation or stenosis. Great Vessels * The aortic root and proximal ascending aorta are normal sized. Pericardium/Pleural * There is no pericardial effusion. Left Ventricular Diastolic Function * Grade I diastolic dysfunction, (abnormal relaxation pattern). MMode 2D Measurements and Calculations IVSd 0.96 cm IVSs 0.75 cm LVIDd 4.0 cm LVIDs 2.9 cm LVPWd 1.1 cm LVPWs 1.8 cm IVS/LVPW 0.90 FS 27.9 % EDV(Teich) 68.5 ml ESV(Teich) 31.1 ml EF(Teich) 54.6 % EDV(cubed) 62.3 ml ESV(cubed) 23.4 ml EF(cubed) 62.5 % % IVS thick -21.64 % % LVPW thick 67.4 % LV mass(C)d 127.2 grams LV mass(C)dI 67.8 grams/m\S\2 LV mass(C)s 111.5 grams LV mass(C)sI 59.4 grams/m\S\2 CO(Teich) 2.7 l/min CI(Teich) 1.5 l/min/m\S\2 SV(Teich) 37.4 ml SI(Teich) 20.0 ml/m\S\2 CO(cubed) 2.8 l/min CI(cubed) 1.5 l/min/m\S\2 SV(cubed) 39.0 ml SI(cubed) 20.8 ml/m\S\2 ACS 1.9 cm asc Aorta Diam 3.0 cm LVAd ap4 22.2 cm\S\2 LVLd ap4 7.1 cm EDV(MOD-sp4) 57.2 ml LVAs ap4 13.7 cm\S\2 LVLs ap4 5.9 cm ESV(MOD-sp4) 26.0 ml EF(MOD-sp4) 54.5 % LVAd ap2 25.8 cm\S\2 LVLd ap2 8.3 cm EDV(MOD-sp2) 65.7 ml LVAs ap2 15.9 cm\S\2 LVLs ap2 6.3 cm ESV(MOD-sp2) 33.3 ml EF(MOD-sp2) 49.3 % CO(MOD-sp4) 2.3 l/min CI(MOD-sp4) 1.2 l/min/m\S\2 SV(MOD-sp4) 31.2 ml SI(MOD-sp4) 16.6 ml/m\S\2 CO(MOD-sp2) 2.4 l/min CI(MOD-sp2) 1.3 l/min/m\S\2 SV(MOD-sp2) 32.4 ml SI(MOD-sp2) 17.3 ml/m\S\2 Doppler Measurements and Calculations MV E max kalie 59.7 cm/sec MV A max kalie 78.6 cm/sec MV E/A 0.76 MV P1/2t max kalie 79.9 cm/sec MV P1/2t 64.8 msec MVA(P1/2t) 3.4 cm\S\2 MV dec slope 361.1 cm/sec\S\2 MV dec time 0.40 sec Ao V2 max 114.8 cm/sec Ao max PG 5.3 mmHg Ao max PG (full) 2.4 mmHg LV V1 max PG 2.9 mmHg LV V1 max 84.9 cm/sec
[2017-01-01] MEDS ORDERED: NURSING VERBAL MED ORDER ONE (11:30)
[2017-01-01] MEDS: NICOTINE 21 MG/24 HR TDSY TD SCH (11:55)
[2017-01-01] MEDS: NITROGLYCERIN OINT 2% 1GM PACKET EXT SCH ×3 (11:56→23:54)
[2017-01-01 14:08] LABS: CKMB/CK RATIO 11.7 (0-3.0)
--- NOTE | 2017-01-01 17:26 | Progress Note ---
Internal Med Progress Note Date of Service: Jan 01, 2017. Provider Documentation: SUBJECTIVE: Patient is lying in her bed in no apparent distress.Still has intermittent chest pain/pressure. No SOB or diaporesis. Vitals have been stable. OBJECTIVE: Vital Signs-as noted below Examination: General Appearance: Alert/Awake in no apparent distress Head: normocephalic, atraumatic Eyes: normal inspection, sclerae normal Neck: no adenopathy, no carotid bruits, trachea midline Respiratory/Chest: chest non-tender, lungs clear, normal breath sounds, no respiratory distress Cardiovascular: regular rate, rhythm, no murmur Abdomen/GI: normal bowel sounds, non tender, soft Extremities/Musculoskeletal: normal capillary refill, no pedal edema Neurologic/Psych: alert, normal mood/affect, oriented x 3 Skin: normal color, warm/dry, no rash Lab data as noted below. ASSESSMENT & PLAN: Cardiac Cath 01/01/2017 Right dominant coronary anatomy Normal coronaries Normal LV function EF 65% LVEDP 14 Echocardiogram Normal LV chamber size and wall thickness. Normal LV systolic function, EF 55-60%. No segmental left ventricular wall motion abnormalities are noted. Grade I diastolic dysfunction. No significant valvular pathology. CHEST PAIN /UNSTABLE ANGINA EQUIVALENT (NSTEMI) : Presented with typical anginal symptom. No prior hx of CAD Clinically & hemodynamically doing well. -CT chest with contrast -negatived for PE -Noted findings of Cardiac Cath. Needs medical management -Continue I/V Heparin -Serial Troponin show 0.28 --> 9.7 --> 13.1. -Reviewed findings of Echocardiogram -Reviewed Cardiology consult. Thanks fo input. HX Of COPD: Respiratory status stable. No evidence of exacerbation Tobacco Abuse: Smoked 1 pack/day for 37 years; Never used smokeless tobacco. started smoking at age 14-down to 1 ppd from 2ppd since 02/2010 -Nicotine patch ordered as Per recent office visit note with Dr Kumari : pt has tried to quit, had nightmares on Chantix. -Smoking cessation counselling provided Depression: Continue with Prozac Hyponatremia: Resolved. Likely due to dehydration -Gentle hydration with IV NSS -Follow PRP Hypokalemia: Replaced. Follow up labs in AM. Pulmonary Nodule:Incidental finding in CT chest Hx of 38 pk/yr smoking hx -high risk -Repeat CT chest in 12 months HX Of Lupus: Follows with Rheumatology Dr Morgan -Holding Plaquenil in setting of acute coronary event -Can be resumed when clinically improved HX OF Chronic Back Pain/ Arthritis: Pt was recently started on PO Prednisone taper for left sided sciatica , low back pain by her PCP Pt complains of gait disturbance due to chronic pain. Frequent falls at home -PT/OT eval requested Code Status: FULL CODE DVT Prophylaxis : IV heparin wt based protocol Disposition : Expected to return home when medically stable Medicine follow up with Dr Kumari Vital Signs: Date Time Temp Pulse Resp B/P Pulse Ox O2 Delivery O2 Flow Rate FiO2 01/01/17 16:00 Room Air 01/01/17 15:25 36.9 96 16 127/85 93 Room Air 01/01/17 13:15 81 18 109/73 93 01/01/17 12:15 68 18 103/67 93 01/01/17 12:00 Room Air 01/01/17 11:45 77 18 106/73 98 01/01/17 11:00 77 18 111/69 97 01/01/17 10:45 75 18 101/70 93 01/01/17 10:30 76 18 109/75 93 01/01/17 10:15 71 18 101/60 97 Room Air 01/01/17 10:10 70 18 98/64 97 Room Air 01/01/17 10:05 72 16 97/63 96 Room Air 01/01/17 10:00 71 16 98/66 96 Room Air 01/01/17 09:55 70 16 99/67 96 Room Air 01/01/17 09:50 72 16 101/66 96 Room Air 01/01/17 09:45 70 16 105/63 96 Room Air 01/01/17 09:40 71 16 91/67 96 Room Air 01/01/17 09:35 72 16 96/65 96 Room Air 01/01/17 09:30 62 16 95/64 96 Room Air 01/01/17 09:25 65 16 96/69 96 Room Air 01/01/17 09:20 68 16 98/68 98 Room Air 01/01/17 09:16 67 16 96/67 98 Room Air 01/01/17 07:51 36.4 76 20 100/62 96 Nasal Cannula 2.0 01/01/17 06:18 75 107/74 01/01/17 06:13 78 110/77 01/01/17 06:08 81 110/76 01/01/17 06:03 75 112/75 98 2.0 01/01/17 05:54 100/69 01/01/17 05:52 80 109/75 01/01/17 05:48 82 109/74 01/01/17 05:43 80 115/83 99 2.0 01/01/17 05:35 36.7 84 19 118/77 93 Room Air 01/01/17 04:02 36.9 75 19 99/68 94 Room Air 01/01/17 04:00 Room Air 12/31/16 23:59 Room Air 12/31/16 22:45 36.6 87 18 121/87 96 Room Air 12/31/16 22:19 92 16 112/80 96 12/31/16 21:53 90 20 12/31/16 21:39 106/81 12/31/16 21:38 104 25 12/31/16 21:23 90 24 12/31/16 21:08 88 20 12/31/16 20:53 97 17 12/31/16 20:38 98 18 12/31/16 20:23 91 16 12/31/16 19:55 108/69 12/31/16 19:53 95 15 12/31/16 19:48 101 12/31/16 19:45 94 120/77 96 Room Air 12/31/16 19:43 118/76 12/31/16 19:39 Room Air 12/31/16 19:35 95 120/91 96 Room Air 12/31/16 19:23 95 12/31/16 19:00 134/91 12/31/16 18:55 36.7 111 20 156/90 95 Room Air Lab Results: Results Past 24 Hours Test 12/31/16 19:15 01/01/17 03:50 01/01/17 05:35 01/01/17 06:33 Range/Units White Blood Count 10.41 9.61 10.93 4.8-10.8 K/uL Red Blood Count 4.14 4.02 4.18 4.2-5.4 M/uL Hemoglobin 13.7 13.2 13.4 12.0-16.0 g/dL Hematocrit 38.5 38.0 39.6 37-47 % Mean Corpuscular Volume 93.0 94.5 94.7 80-100 fL Mean Corpuscular Hemoglobin 33.1 32.8 32.1 25-34 pg Mean Corpuscular Hemoglobin Concent 35.6 34.7 33.8 32-36 g/dl Platelet Count 181 173 212 130-400 K/uL Mean Platelet Volume 8.4 8.5 9.0 7.4-10.4 fL Neutrophils (%) (Auto) 78.4 % Lymphocytes (%) (Auto) 15.1 % Monocytes (%) (Auto) 4.8 % Eosinophils (%) (Auto) 1.1 % Basophils (%) (Auto) 0.3 % Neutrophils # (Auto) 8.17 1.4-6.5 K/uL Lymphocytes # (Auto) 1.57 1.2-3.4 K/uL Monocytes # (Auto) 0.50 0.11-0.59 K/uL Eosinophils # (Auto) 0.11 0-0.5 K/uL Basophils # (Auto) 0.03 0-0.2 K/uL RDW Standard Deviation 43.9 45.7 46.0 36.4-46.3 fL RDW Coefficient of Variation 12.9 13.1 13.3 11.5-14.5 % Immature Granulocyte % (Auto) 0.3 % Immature Granulocyte # (Auto) 0.03 0.00-0.02 K/uL D-Dimer 660 0-500 ug/L FEU Sodium Level 135 145 144 136-145 mmol/L Potassium Level 3.4 4.9 4.5 3.5-5.1 mmol/L Chloride Level 100 111 110 98-107 mmol/L Carbon Dioxide Level 25 29 27 21-32 mmol/L Anion Gap 10.0 5.0 7.0 3-11 mmol/L Blood Urea Nitrogen 18 12 12 7-18 mg/dl Creatinine 0.76 0.69 0.69 0.60-1.20 mg/dl Est Creatinine Clear Calc Drug Dose 86.3 95.0 95.0 ml/min Estimated GFR () 100.9 112.0 112.0 Estimated GFR (Non- 87.1 96.6 96.6 BUN/Creatinine Ratio 23.7 17.3 17.0 10-20 Random Glucose 89 79 98 70-99 mg/dl Calcium Level 8.7 8.6 8.6 8.5-10.1 mg/dl Total Creatine Kinase 74 611 682 26-192 U/L Creatine Kinase MB 4.5 80.1 87.9 0.5-3.6 ng/ml Creatine Kinase MB Ratio 6.1 13.1 12.9 0-3.0 Troponin I 0.285 9.750 13.100 0-0.045 ng/ml Activated Partial Thromboplast Time 27.3 21.0-31.0 SECONDS Partial Thromboplastin Ratio 1.1 Magnesium Level 2.3 1.8-2.4 mg/dl Triglycerides Level 154 0-150 mg/dl Cholesterol Level 170 0-200 mg/dl HDL Cholesterol 38 mg/dl LDL Cholesterol, Calculated 101 mg/dl VLDL Cholesterol, Calculated 31 mg/dl Cholesterol/HDL Ratio 4.5 Urine Color YELLOW Urine Appearance CLEAR CLEAR Urine pH 5.5 4.5-7.5 Urine Specific [place] 1.016 1.000-1.030 Urine Protein NEG NEG Urine Glucose (UA) NEG NEG Urine Ketones NEG NEG Urine Occult Blood NEG NEG Urine Nitrite NEG NEG Urine Bilirubin NEG NEG Urine Urobilinogen NEG NEG Urine Leukocyte Esterase NEG NEG Pro-B-Type Natriuretic Peptide 404 0-900 pg/ml Test 01/01/17 09:18 01/01/17 12:40 Range/Units Kaolin Activated Coagulation Time 142 94-140 SECONDS Total Creatine Kinase 621 26-192 U/L Creatine Kinase MB 72.9 0.5-3.6 ng/ml Creatine Kinase MB Ratio 11.7 0-3.0 Troponin I 18.200 0-0.045 ng/ml
--- NOTE | 2017-01-01 19:38 | CARDIAC CATH REPORT ---
PROCEDURE: Left heart catheterization, coronary angiography. INDICATIONS: Suspected acute coronary syndrome. BRIEF CARDIAC HISTORY: The patient is a 56-year-old female with cardiac risk factors of dyslipidemia, family history and chronic tobacco use, presented with symptoms consistent with acute anginal chest pain, diaphoresis, radiation to her left arm, elevated troponin, a significant rise in troponin to a peak of 13. She is referred for diagnostic cardiac catheterization urgently. ACCESS: Right femoral artery. CATHETERS: A 5-Mongolian sheath, 5-Mongolian JL4, 5-Mongolian 30 RC, 5-Mongolian straight pigtail. CONTRAST: Nonionic x102 mL of Visipaque. IV FLUIDS: 104 mL normal saline. SEDATION: Prior to presenting for procedure the patient received Benadryl 25 mg and Valium 5 mg p.o. At 08:51, start of procedure the patient received 1 mg IV Versed and procedure 9:16 without sedation complication. The patient arousable and awake throughout the procedure answering questions. RADIATION EXPOSURE: Fluoroscopy 1.6 minutes, milligrays 768, DAP score 5214. COMPLICATIONS: None. RESULTS: CORONARY ANGIOGRAPHY: The coronary anatomy is right dominant. LEFT MAIN: Left main is long and trifurcates to give rise to left anterior descending, a small ramus intermedius and the left circumflex. There is no disease in the left main. LEFT ANTERIOR DESCENDING: Left anterior descending is type 3 in distribution and gives rise to a large septal branch shortly after its origin, 2 diagonal branches in its proximal third then courses to terminate beyond the apex. Within the left anterior descending, there is very minimal luminal irregularities and no obstructive disease. LEFT CIRCUMFLEX: Left circumflex is large but nondominant and gives rise to 2 marginal branches and 2 posterolateral branches. There is no disease in the left circumflex. RAMUS INTERMEDIUS: A trivial vessel without obstructive disease. RIGHT CORONARY ARTERY: The right coronary is dominant in distribution and moderate in caliber. Gives rise to a large sinoatrial mitzi branch at its origin, 2 right ventricular branches in its mid portion at the AV groove a long bifurcating PDA and along the AV groove a single posterior ventricular branch. There are minimal luminal irregularities in the mid right coronary artery and no obstructive disease. LV ANGIOGRAPHY: Left ventricle was normal size, ejection fraction is greater than 65%. There were no wall motion abnormalities. There is no mitral insufficiency. HEMODYNAMICS: Initial aortic root pressure was 86/58 with a mean of 71. LV pressure was 81/9 with an LVEDP of 14. Following LV angiography a pullback to the aortic root, there is no transaortic valve gradient. FINAL IMPRESSION: 1. Essentially normal coronaries, right dominant anatomy with minimal luminal irregularities only. 2. Normal left ventricular systolic function, ejection fraction 65% or greater. 3. Normal left end diastolic pressures. RECOMMENDATIONS: Continued medical management. Tobacco cessation.
[2017-01-01] MEDS ORDERED: LORAZEPAM 0.5 MG TAB PO SCH (21:00)
[2017-01-01] MEDS ORDERED: AMLODIPINE BESYLATE 5 MG TAB PO SCH (21:00)
[2017-01-02 00:02] VITALS: BP 95/63; PULSE 77; TEMP 36.5; O2SAT 95
[2017-01-02 04:44] VITALS: BP 100/67; PULSE 83; TEMP 36.5; O2SAT 92
[2017-01-02] MEDS: ONDANSETRON INJ 2 MG/ML 2 ML VIAL IV PRN (06:06)
[2017-01-02 06:09] VITALS: BP 116/71; PULSE 87
[2017-01-02] MEDS: NITROGLYCERIN OINT 2% 1GM PACKET EXT SCH ×2 (06:09→12:00)
[2017-01-02 07:03] LABS: HEMATOCRIT 38.1 % (37-47); MEAN CELL VOLUME 96.5 fL (80-100); MEAN CORPUSCULAR HEMOGLOBIN 32.9 pg (25-34); MEAN CORPUSCULAR HGB CONC 34.1 g/dl (32-36); MEAN PLATELET VOLUME 8.8 fL (7.4-10.4); PLATELET COUNT 171 K/uL (130-400); RED BLOOD COUNT 3.95 M/uL (4.2-5.4); WHITE BLOOD COUNT 8.64 K/uL (4.8-10.8)
[2017-01-02 07:10] LABS: PARTIAL THROMBOPLASTIN RATIO 1.1
[2017-01-02 07:34] VITALS: BP 106/70; PULSE 84; TEMP 36.8; O2SAT 99
[2017-01-02 07:35] LABS: BUN/CREATININE RATIO 11.9 (10-20); CALCIUM 8.5 mg/dl (8.5-10.1); CREATININE 0.62 mg/dl (0.60-1.20); MAGNESIUM 2.2 mg/dl (1.8-2.4); POTASSIUM 3.8 mmol/L (3.5-5.1)
[2017-01-02] MEDS: ASPIRIN 81 MG ECTAB PO SCH (08:02)
[2017-01-02] MEDS: FLUOXETINE HCL 20 MG CAP PO SCH (08:03)
[2017-01-02] MEDS: ATORVASTATIN 40 MG TAB PO SCH (08:03)
[2017-01-02] MEDS: NICOTINE 21 MG/24 HR TDSY TD SCH (08:03)
[2017-01-02 11:42] VITALS: BP 103/67; PULSE 76; TEMP 36.9; O2SAT 95
--- NOTE | 2017-01-02 15:19 | Progress Note ---
Medicine Progress Note Date & Time of Visit: Jan 02, 2017 at 15:09. Subjective seen sitting up in bed, comfortable in good spirits chest pain free no dyspnea, palpitations, dizziness, nausea denies other symptoms states she is back to baseline states she is ready and would like to be discharged today Objective Last 8 Hrs Date Time Temp Pulse Resp B/P Pulse Ox O2 Delivery O2 Flow Rate FiO2 01/02/17 12:00 Room Air 01/02/17 11:42 36.9 76 18 103/67 95 01/02/17 08:00 Room Air 01/02/17 07:34 36.8 84 16 106/70 99 Physical Exam: General- oriented x 3, not in distress, speaks in sentences with no effort Eyes- EOMI, anicteric ENT- oropharynx clear Neck- supple, no JVD Lungs- clear to auscultation bilaterally Heart- normal rate, regular rhythm; no murmurs Abdomen- normal bowel sounds, soft, nontender Extremities- no pretibial edema, no calf tenderness Neuro- alert, oriented x 3; no gross focal deficits Skin- warm & dry Laboratory Results: Last 24 Hours Test 01/02/17 06:35 White Blood Count 8.64 K/uL Red Blood Count 3.95 M/uL Hemoglobin 13.0 g/dL Hematocrit 38.1 % Mean Corpuscular Volume 96.5 fL Mean Corpuscular Hemoglobin 32.9 pg Mean Corpuscular Hemoglobin Concent 34.1 g/dl RDW Standard Deviation 46.9 fL RDW Coefficient of Variation 13.3 % Platelet Count 171 K/uL Mean Platelet Volume 8.8 fL Activated Partial Thromboplast Time 28.0 SECONDS Partial Thromboplastin Ratio 1.1 Sodium Level 141 mmol/L Potassium Level 3.8 mmol/L Chloride Level 108 mmol/L Carbon Dioxide Level 27 mmol/L Anion Gap 6.0 mmol/L Blood Urea Nitrogen 7 mg/dl Creatinine 0.62 mg/dl Est Creatinine Clear Calc Drug Dose 105.3 ml/min Estimated GFR () 116.0 Estimated GFR (Non- 100.1 BUN/Creatinine Ratio 11.9 Random Glucose 93 mg/dl Calcium Level 8.5 mg/dl Magnesium Level 2.2 mg/dl Troponin I 12.200 ng/ml Assessment & Plan CHEST PAIN, POSSIBLE CORONARY VASOSPASM - Presented with typical anginal symptom. No prior hx of CAD - was placed on Heparin IV Serial Troponin showed 0.28 --> 9.7 --> 13.1. - s/p Cardiac Cath 01/01/[address] Camacho FINAL IMPRESSION: 1. Essentially normal coronaries, right dominant anatomy with minimal luminal irregularities only. 2. Normal left ventricular systolic function, ejection fraction 65% or greater. 3. Normal left end diastolic pressures. - Echo: -- Conclusions -- * Normal LV chamber size and wall thickness. * Normal LV systolic function, EF 55-60%. * No segmental left ventricular wall motion abnormalities are noted. * Grade I diastolic dysfunction. * No significant valvular pathology. -CT chest with contrast -negatived for PE - discussed with Clinical Partner Dr. Camacho recommend Amlodipine 2.5mg po daily and Aspirin 81mg po daily advised patient the importance of smoking cessation, she verbalized understanding HX Of COPD: stable. Tobacco Abuse: Smoked 1 pack/day for 37 years; advised patient the importance of smoking cessation, she verbalized understanding Depression: Continue with Prozac Hyponatremia resolved Likely due to dehydration -Gentle hydration with IV NSS Hypokalemia Resolved Pulmonary Nodule:Incidental finding in CT chest Hx of 38 pk/yr smoking hx -high risk - CT chest: 1. No evidence for pulmonary embolus. 2. There are 2 adjacent subcentimeter indeterminate pulmonary nodules within the right middle lobe with the largest measuring 5 mm. Please refer to the chart below for recommended follow-up. 3. Emphysema. -Repeat CT chest in 12 months HX Of Lupus: Follows with Rheumatology Dr Morgan - ashish Elias HX OF Chronic Back Pain/ Arthritis: evaluated by OT recommend return home patient feels stable with ambulation, prefers to go home Code Status: FULL CODE DVT Prophylaxis : IV heparin given Disposition : Expected to return home when medically stable Medicine follow up with Dr Kumari Current Inpatient Medications: Current Inpatient Medications Medications (Trade) Dose Ordered Sig/Forrest Route Start Time Stop Time Status Last Admin Dose Admin Ioversol (Optiray 320) 100 ml UD PRN IV 12/31/16 20:00 01/04/17 19:59 Ondansetron HCl (Zofran Inj) 4 mg Q6H PRN IV 12/31/16 22:00 01/30/17 21:59 01/02/17 06:06 4 MG Nitroglycerin (Nitrostat Tab) 0.4 mg UD PRN SL 12/31/16 22:00 01/30/17 21:59 Aspirin (Ecotrin Tab) 81 mg QAM PO 01/01/17 09:00 01/31/17 08:59 01/02/17 08:02 81 MG Fluoxetine HCl (Prozac Cap) 20 mg DAILY PO 01/01/17 09:00 01/31/17 08:59 01/02/17 08:03 20 MG Lorazepam (Ativan Tab) 0.5 mg HS PO 01/01/17 21:00 01/31/17 20:59 01/01/17 21:22 0.5 MG Nicotine (Nicoderm Cq 21MG Patch) 1 patch QAM TD 12/31/16 22:30 01/30/17 22:29 01/01/17 11:55 1 PATCH Miscellaneous (Remove Nicoderm Patch) 1 ea HS N/A 01/01/17 21:00 01/31/17 20:59 01/01/17 21:22 1 EA Albuterol (Ventolin Hfa Inhaler) 2 puffs Q4 PRN INH 12/31/16 22:30 01/30/17 22:29 Albuterol/ Ipratropium (Duoneb) 3 ml Q4R PRN INH 12/31/16 22:30 01/30/17 22:29 Nitroglycerin (Nitroglycerin 2% Oint) 1 inch Q6H EXT 01/01/17 12:00 01/31/17 11:59 01/02/17 06:09 1 INCH Morphine Sulfate (MoRPHine SULFATE INJ) 1 mg Q4 PRN IV 01/01/17 05:45 01/15/17 05:44 01/01/17 06:06 0.5 MG Lorazepam (Ativan Inj) 0.5 mg Q4H PRN IV 01/01/17 05:45 01/31/17 05:44 Atorvastatin Calcium (Lipitor Tab) 80 mg QAM PO 01/01/17 06:15 01/31/17 06:14 01/02/17 08:03 80 MG Acetaminophen 650 mg 650 mg Q4H PRN PO 01/01/17 09:30 01/31/17 09:29 01/01/17 20:20 650 MG Sodium Chloride (Nss 1000ml) 250 ml @ 999 mls/hr Q16M PRN IV 01/01/17 09:17 01/31/17 09:16 Atropine Sulfate (Atropine Sulfate 0.1MG/Ml Inj) 0.6 mg PRN PRN IV 01/01/17 09:30 01/31/17 09:29 Amlodipine Besylate (Norvasc Tab) 2.5 mg PM PO 01/01/17 21:00 01/31/17 20:59 01/01/17 21:22 2.5 MG
[2017-01-02] MEDS ORDERED: NTRSLP4 SL ×2 (15:25→15:33)
[2017-01-02] MEDS ORDERED: ASPEC81 PO (15:25)
[2017-01-02] MEDS ORDERED: NRV5 PO (15:25)
[2017-01-02] MEDS ORDERED: NCDT21 TD (15:25)
--- NOTE | 2017-01-02 15:30 | Discharge Instructions ---
Discharge Instructions Date of Service Jan 02, 2017. Admission Reason for Admission: Chest Pain Discharge Discharge Diagnosis / Problem: CHEST PAIN, POSSIBLE CORONARY VASOSPASM Discharge Goals Goal(s): Diagnostic testing, Therapeutic intervention Activity Recommendations Activity Limitations: as noted below (NO HEAVY EXERTION UNTIL RE-EVALUATED BY PRIMARY CARE PHYSICIAN) Driving or Machine Use: NO DRIVIING UNTIL RE-EVALUATED BY PRIMARY CARE PHYSICIAN . Instructions / Follow-Up Instructions / Follow-Up Please review your new medication list and follow instructions carefully. If with chest pain, place 1 tab Nitro under the tongue. Upon relief, call Primary Care Physician immediately. If with NO relief, call 911 immediately. Home Care: * Take your medications exactly as directed. Don't skip doses. * Plan to rest for at lease 4-8 weeks while you recover. Then return to normal activity when your doctor says it's okay. * Tell your doctor if you are feeling depressed. Feelings of sadness are common after a heart attack, but it is important that you speak to someone if you are feeling overwhelmed by these feelings. * If you are having chest pain, call 911 for an ambulance. Do NOT drive yourself to the hospital. * Ask your family members to learn CPR. * Learn to take your own blood pressure and pulse. Keep a record of your results. Ask your doctor when you should seek emergency medical attention. He or she will tell you which blood pressure reading is dangerous. Lifestyle Changes: * Maintain a healthy weight. Get help to lose any extra pounds. * Cut back on salt. * Limit canned, dried, packaged, and fast foods. * Don't add salt to your food. * Season foods with herbs instead of salt when you cook. * Break the smoking habit. Enroll in a stop-smoking program to improve your chances of success. * Limit fatty foods. * Check your lipid levels regularly. (Your doctor can show you how to do this.) * Build up your activity according to your doctor's recommendation. * Ask your doctor when it's okay to resume sexual activity. * Try to manage stress. Follow Up: Follow up with Dr. Kumari on Sunday01/08/17 at 11:05am. Acls Nurse Dr. Camacho in 1 month. Tel No. It is important for you to keep your follow up appointments with your medical provider. Current Hospital Diet Patient's current hospital diet: AHA Diet (Heart Healthy) Discharge Diet Recommended Diet: AHA Diet (Heart Healthy) Procedures Procedures Performed: CARDIAC CATH 01/01/17 Pending Studies Studies pending at discharge: yes List of pending studies: REPEAT CT CHEST IN 1 YEARS TO FOLLOW UP LUNG NODULES Laboratory Results Lipid Panel Test 01/01/17 03:50 Range/Units Triglycerides Level 154 H 0-150 mg/dl Cholesterol Level 170 0-200 mg/dl HDL Cholesterol 38 mg/dl Cholesterol/HDL Ratio 4.5 LDL Cholesterol, Calculated 101 mg/dl Medical Emergencies . Who to Call and When: Medical Emergencies: If at any time you feel your situation is an emergency, please call 911 immediately. Call 911 immediately or go to your nearest Emergency Room if you experience any of the following: Warning Signs and Symptoms of a Heart Attack * Chest pain that is not relieved by medication * Shortness of breath . Non-Emergent Contact Non-Emergency issues call your: Primary Care Provider . Past History Medical & Surgical History: (1) Chest pain . "Provider Documentation" section prepared by José Hurley. AMI Core Measures Reason no ASA as I/P: Treatment provided - N/A Reason no ASA at D/C: Treatment provided - N/A Reason no statin as I/P: Treatment not indicated Reason no statin at D/C: Treatment not indicated VTE Core Measure Inpt VTE Proph given/why not?: Unfractionated heparin SQ
[2017-01-02 15:31] VITALS: BP 103/67; PULSE 76; TEMP 36.9; O2SAT 95
--- NOTE | 2017-01-02 15:39 | Discharge Summary ---
Discharge Summary Date of Service Jan 02, 2017. Discharge Summary Admission Date: Dec 31, 2016 at 21:29 Discharge Date: Jan 02, 2017 Discharge Disposition: Home Principal Diagnosis: CHEST PAIN, POSSIBLE CORONARY VASOSPASM Secondary Diagnoses/Problems: Please refer to hospital course below. Procedures: CARDIAC CATHETERIZATION: FINAL IMPRESSION: 1. Essentially normal coronaries, right dominant anatomy with minimal luminal irregularities only. 2. Normal left ventricular systolic function, ejection fraction 65% or greater. 3. Normal left end diastolic pressures. RECOMMENDATIONS: Continued medical management. Tobacco cessation. CHEST CTA for PULMONARY ARTERIES CT DOSE: 310.41 mGy.cm HISTORY: Atypical chest pain. TECHNIQUE: Multiaxial CT images of the chest were performed following the intravenous administration of contrast to evaluate the pulmonary arteries. Maximal intensity projection images were also obtained. COMPARISON STUDY: None. FINDINGS: There is a normal caliber thoracic aorta with no evidence for dissection. There is no evidence for pulmonary embolus. No pleural effusions. No pneumothorax. The liver and spleen are unremarkable. No mediastinal or hilar lymphadenopathy. The central airways are patent. Mild noncalcified plaque within the aortic arch and proximal left subclavian artery. Bilateral lower lobe posterior groundglass opacities favor mild dependent change. There is mild to moderate emphysema. A 5 mm subpleural nodule within the right middle lobe on image 141 and a 4 mm subpleural nodule within the right middle lobe on image 134. IMPRESSION: 1. No evidence for pulmonary embolus. 2. There are 2 adjacent subcentimeter indeterminate pulmonary nodules within the right middle lobe with the largest measuring 5 mm. Please refer to the chart below for recommended follow-up. 3. Emphysema. Please refer to below summary of Fleischner criteria recommendations for follow-up of incidental CT nodules (Willard Betancourt, Guidelines for management of small pulmonary nodules detected on CT scans: A statement from the Fleischner Society, Radiology 237: [phone].) SOLID NODULES Solitary nodule size: <6 mm * low risk patients: no follow-up needed * high risk patients: optional CT at 12 months Solitary nodule size: 6-8 mm * low risk patients: follow-up at 6-12 months, then consider further follow-up at 18-24 months * high risk patients: initial follow-up CT at 6-12 months and then at 18-24 months if no change Solitary nodule size: >8 mm * either low or high risk patients - consider follow-up CT at 3 months, and/or CT-PET, and/or biopsy Multiple nodules size: <6 mm * low risk patients: no routine follow-up * high risk patients: optional CT at 12 months Multiple nodules size: 6-8 mm * low risk patients: follow-up at 3-6 months, then consider further follow-up at 18-24 months * high risk patients: follow-up at 3-6 months, then at 18-24 months if no change Multiple nodules size: >8 mm * low risk patients: follow-up at 3-6 months, then consider further follow-up at 18-24 months * high risk patients: follow-up at 3-6 months, then at 18-24 months if no change Note: newly detected indeterminate nodule in persons 35 years of age or older. * low risk patients: minimal or absent history of smoking and/or other known risk factors * high risk patients: history of smoking or of other known risk factors (e.g. first degree relative with lung cancer, or exposure to asbestos, radon, uranium) * if a nodule up to 8 mm is partly solid or is ground glass further follow-up is required after 24 months to exclude possible slow growing adenocarcinoma ([place]) SUBSOLID NODULES Solitary pure ground-glass nodule * nodule size <6 mm - no CT follow-up required * nodule size >=6 mm - follow-up CT at 6-12 months, then every 2 years until 5 years Solitary part-solid nodule * nodule size <6 mm - no CT follow-up required * nodule size >=6 mm - follow-up CT at 3-6 months. If unchanged, and solid component remains <6 mm, then annual follow-up for 5 years Multiple subsolid nodules * nodule size <6 mm - follow-up CT at 3-6 months, consider further follow-up at 2 and 4 years if stable * nodule size >=6 mm - follow-up CT at 3-6 months, subsequent management based on the most suspicious nodule(s) Consultations: [employer]NALYST DR. CAMACHO Pending Studies/Follow-Up: repeat CT chest to follow up lung nodules (please see full CT chest report above ); please refer to hospital course below for further details. Medication Reconciliation New Medications: Amlodipine Besylate (Amlodipine Besylate) 5 Mg Tab 2.5 MG PO PM for 30 Days, #15 TAB 2 Refills Aspirin (Aspirin EC Low Dose) 81 Mg Ectab 81 MG PO QAM for 30 Days, #30 TABS 2 Refills with food Nicotine (Nicotine) 1 Patch Tdsy 1 PATCH TD QAM for 14 Days, #14 PATCH 1 Refill Nitroglycerin (Nitrostat) 0.4 Mg/1 Tab Subl 0.4 MG SL UD PRN for Chest Pain, #20 TABS 2 Refills if with chest pain, place 1 tablet under the tongue immediately. If pain is unrelieved or worsened 3 to 5 minutes after 1 dose, call immediately Continued Medications: Fluoxetine (Prozac) 20 Mg Cap 20 MG PO DAILY Hydroxychloroquine Sulfate (Plaquenil) 200 Mg Tab 200 MG PO DAILY Lorazepam (Ativan) 0.5 Mg Tab 0.5 MG PO HS Admission Information HPI (per Admitting provider): The patient is a 56 year old female with past medical hx of chronic tobacco abuse , SLE presented to ED with complain of severe substernal chest discomfort with pain radiation to jaw , left underarm associated with SOB , diaphoresis and nausea pt does not having any hx of Coronary artery disease , family hx significant for Father having NE , pt could not tell how old he was when he had the NE later developed post NE complication -CHF pt mentions that her symptom started approx around 5 pm after she finished giving bath to her Dog felt severe substernal crushing chest pain with pain radiating to her jaw , neck , right ear , had numbness on left underarm felt diaphoretic , nauseous, associated with SOB . She thought this may have been an anxiety attack, so she took 2 Lorazepam pills and Aspirin 84 mg PO. Her symptom resolved after SL nitro during my interview -pt was completely symptom free, no chest discomfort, no SOB ,no nausea concerned about her symptom cardiac markers at 19: 15 CK 74/CKMB 4.5/lila 0.285 EKG was normal sinus no acute ST-T wave changes Physical Exam (per Admitting): General Appearance: no apparent distress Head: normocephalic, atraumatic Eyes: normal inspection, sclerae normal Neck: no adenopathy, no carotid bruits, trachea midline Respiratory/Chest: chest non-tender, lungs clear, normal breath sounds, no respiratory distress Cardiovascular: regular rate, rhythm, no murmur Abdomen/GI: normal bowel sounds, non tender, soft Extremities/Musculoskelatal: normal capillary refill, no pedal edema Neurologic/Psych: alert, normal mood/affect, oriented x 3 Skin: normal color, warm/dry, no rash Hospital Course CHEST PAIN, POSSIBLE CORONARY VASOSPASM - Presented with typical anginal symptom. No prior hx of CAD Serial Troponin showed 0.28 --> 9.7 --> 13.1.--> 12 - was placed on Heparin IV - Echo: * Normal LV chamber size and wall thickness. * Normal LV systolic function, EF 55-60%. * No segmental left ventricular wall motion abnormalities are noted. * Grade I diastolic dysfunction. * No significant valvular pathology. - s/p Cardiac Cath 01/01/[address] Camacho FINAL IMPRESSION: 1. Essentially normal coronaries, right dominant anatomy with minimal luminal irregularities only. 2. Normal left ventricular systolic function, ejection fraction 65% or greater. 3. Normal left end diastolic pressures. -CT chest with contrast -negatived for PE - discussed with Department Manager Dr. Camacho recommend Amlodipine 2.5mg po daily and Aspirin 81mg po daily advised patient the importance of smoking cessation, she verbalized understanding - ff up with Dr. Camacho in 1 month HX Of COPD: stable. Tobacco Abuse: Smoked 1 pack/day for 37 years; advised patient the importance of smoking cessation, she verbalized understanding Depression: Continue with Prozac Hyponatremia resolved Likely due to dehydration -given IV fluids Hypokalemia Resolved Pulmonary Nodule: - Incidental finding in CT chest Hx of 38 pk/yr smoking hx -high risk - CT chest: 1. No evidence for pulmonary embolus. 2. There are 2 adjacent subcentimeter indeterminate pulmonary nodules within the right middle lobe with the largest measuring 5 mm. 3. Emphysema. -Repeat CT chest (please refer to full CT chest report above for recommended follow up.) HX Of Lupus: - Follows with Rheumatology Dr Morgan - resume Plaquenil HX OF Chronic Back Pain/ Arthritis: evaluated by OT recommend return home patient feels stable with ambulation, prefers to go home DVT Prophylaxis : IV heparin given Disposition : d/c home ff up with PCP Dr. Kumari in 1 week ff up with Department Manager Dr. Camacho in 1 month Total time spent on discharge = 30 mins This includes examination of the patient, discharge planning, medication reconciliation, and communication with other providers. Discharge Instructions Discharge Instructions Date of Service Jan 02, 2017. Admission Reason for Admission: Chest Pain Discharge Discharge Diagnosis / Problem: CHEST PAIN, POSSIBLE CORONARY VASOSPASM Discharge Goals Goal(s): Diagnostic testing, Therapeutic intervention Activity Recommendations Activity Limitations: as noted below (NO HEAVY EXERTION UNTIL RE-EVALUATED BY PRIMARY CARE PHYSICIAN) Driving or Machine Use: NO DRIVIING UNTIL RE-EVALUATED BY PRIMARY CARE PHYSICIAN . Instructions / Follow-Up Instructions / Follow-Up Please review your new medication list and follow instructions carefully. If with chest pain, place 1 tab Nitro under the tongue. Upon relief, call Primary Care Physician immediately. If with NO relief, call 911 immediately. Home Care: * Take your medications exactly as directed. Don't skip doses. * Plan to rest for at lease 4-8 weeks while you recover. Then return to normal activity when your doctor says it's okay. * Tell your doctor if you are feeling depressed. Feelings of sadness are common after a heart attack, but it is important that you speak to someone if you are feeling overwhelmed by these feelings. * If you are having chest pain, call 911 for an ambulance. Do NOT drive yourself to the hospital. * Ask your family members to learn CPR. * Learn to take your own blood pressure and pulse. Keep a record of your results. Ask your doctor when you should seek emergency medical attention. He or she will tell you which blood pressure reading is dangerous. Lifestyle Changes: * Maintain a healthy weight. Get help to lose any extra pounds. * Cut back on salt. * Limit canned, dried, packaged, and fast foods. * Don't add salt to your food. * Season foods with herbs instead of salt when you cook. * Break the smoking habit. Enroll in a stop-smoking program to improve your chances of success. * Limit fatty foods. * Check your lipid levels regularly. (Your doctor can show you how to do this.) * Build up your activity according to your doctor's recommendation. * Ask your doctor when it's okay to resume sexual activity. * Try to manage stress. Follow Up: Follow up with Dr. Kumari on Sunday01/08/17 at 11:05am. Department Manager Dr. Camacho in 1 month. Tel No. It is important for you to keep your follow up appointments with your medical provider. Current Hospital Diet Patient's current hospital diet: AHA Diet (Heart Healthy) Discharge Diet Recommended Diet: AHA Diet (Heart Healthy) Procedures Procedures Performed: CARDIAC CATH 01/01/17 Pending Studies Studies pending at discharge: yes List of pending studies: REPEAT CT CHEST IN 1 YEARS TO FOLLOW UP LUNG NODULES Laboratory Results Lipid Panel Test 01/01/17 03:50 Range/Units Triglycerides Level 154 H 0-150 mg/dl Cholesterol Level 170 0-200 mg/dl HDL Cholesterol 38 mg/dl Cholesterol/HDL Ratio 4.5 LDL Cholesterol, Calculated 101 mg/dl Medical Emergencies . Who to Call and When: Medical Emergencies: If at any time you feel your situation is an emergency, please call 911 immediately. Call 911 immediately or go to your nearest Emergency Room if you experience any of the following: Warning Signs and Symptoms of a Heart Attack * Chest pain that is not relieved by medication * Shortness of breath . Non-Emergent Contact Non-Emergency issues call your: Primary Care Provider . Past History Medical & Surgical History: (1) Chest pain . "Provider Documentation" section prepared by José Hurley. AMI Core Measures Reason no ASA as I/P: Treatment provided - N/A Reason no ASA at D/C: Treatment provided - N/A Reason no statin as I/P: Treatment not indicated Reason no statin at D/C: Treatment not indicated VTE Core Measure Inpt VTE Proph given/why not?: Unfractionated heparin SQ
--- NOTE | 2017-01-02 18:22 | CARDIOLOGY PROGRESS NOTE ---
DATE: 01/02/2017 The patient was seen and examined. Chart, medications, and telemetry were reviewed. SUBJECTIVE: The patient had no difficulties overnight. Notes no further chest pains or discomfort. Tolerated low dose amlodipine initiation last evening. OBJECTIVE: VITAL SIGNS: Heart rate 76 and blood pressure is 103/67. NECK: Thin. There is no jugular venous distention. LUNGS: Clear to auscultation. CARDIOVASCULAR: Regular. There is no S3 gallop. ABDOMEN: Soft and nontender. EXTREMITIES: Without cyanosis or clubbing. There is no peripheral edema. IMPRESSION: A 56-year-old female presented with acute chest pain and discomfort. Evaluation included a CT angiography of the chest without evidence of pulmonary emboli and subsequent cardiac catheterization due to substantial elevation in troponin . Cardiac catheterization demonstrated minimal luminal irregularities and no obstructive coronary artery disease. Etiology of the patient's current elevation in troponin is uncertain and given significant elevation, concerns are raised regarding possible spasm induced complaints. PLAN: Will be to initiate and continue amlodipine at 2.5 mg per day and aspirin 81 mg per day. I strongly emphasized the need for tobacco cessation. Follow up with cardiology in 1 month's time. [facility]
== END 2017-01-02 15:56 | disposition home or self-care (01) | DRG 281 ==
LOC: ENRESERVDT → ENRESERVTM → C.EDB 18:49 → EEVIPCON 21:29 → C.2T 21:29
PROVIDERS: ADMIT Hospitalist; ATTEND Internal Medicine
PROC: 4A023N7 Measurement of Cardiac Sampling and Pressure, Left Heart, Percutaneous Approach (ICD-10-PCS; principal; 2017-01-01 08:00)
PROC: B2151ZZ Fluoroscopy of Left Heart using Low Osmolar Contrast (ICD-10-PCS; principal; 2017-01-01 08:00)
PROC: B2111ZZ Fluoroscopy of Multiple Coronary Arteries using Low Osmolar Contrast (ICD-10-PCS; principal; 2017-01-01 08:00)
DX: I21.4 Non-ST elevation (NSTEMI) myocardial infarction (principal); E87.1 Hypo-osmolality and hyponatremia; E87.6 Hypokalemia; J44.9 Chronic obstructive pulmonary disease, unspecified; G89.29 Other chronic pain; F32.9 Major depressive disorder, single episode, unspecified; M32.9 Systemic lupus erythematosus, unspecified; F17.210 Nicotine dependence, cigarettes, uncomplicated; R91.1 Solitary pulmonary nodule; M54.30 Sciatica, unspecified side; E78.5 Hyperlipidemia, unspecified; R26.9 Unspecified abnormalities of gait and mobility; M19.90 Unspecified osteoarthritis, unspecified site; R79.89 Other specified abnormal findings of blood chemistry; I20.1 Angina pectoris with documented spasm; R68.84 Jaw pain; Z82.49 Family history of ischemic heart disease and other diseases of the circulatory system; Z79.899 Other long term (current) drug therapy